=== PATIENT | male | born 1950 | race Caucasian/White ===

== ENCOUNTER 2017-12-06 13:18 | Inpatient (IN) ==
[2017-12-06 13:54] LABS: Basophils % 0.3 % (0.0-0.8); Eosinophils # 0.2 10*3/uL (0.0-0.87); Eosinophils % 1.1 % (0.00-10.9); Hematocrit 42.5 VOL% (42.0-52.0); Hemoglobin 14.9 GM/DL (14.0-18.0); Immature Granulocytes % 0.4 %; Immature Granulocytes Absolute 0.05 #; Lymphocytes % 14.5 % (21.2-54.2); Mean Corpuscular HGB Conc 35.1 GM/DL (32-36); Mean Corpuscular Hemoglobin 33 PG (27-34); Mean Corpuscular Volume 95.1 FL (87-102); Mean Platelet Volume 10.7 FL (9.6-12.0); Monocytes # 1.1 10*3/uL (0.11-0.8); Neutrophils # 10.6 10*3/uL (1.4-7.4); Neutrophils % 75.7 % (38.7-73.9); Platelet Count 182 T/CUMM (130-400); Red Blood Count 4.47 MC/CUMM (3.8-5.5)
[2017-12-06 14:13] LABS: Calcium 8.9 MG/DL (8.5-10.1); Osmolality,Calculated 280.5 MOS/KG (273-304); Potassium 3.9 MMOL/L (3.5-5.1)
[2017-12-06] MEDS ORDERED: CEFTAROLINE 600 MG in SODIUM CHLORIDE 0.9% 100 ML IV STA (15:38)
[2017-12-06] MEDS ORDERED: ACETAMINOPHEN 325 MG TABLET PO PRN (17:23)
[2017-12-06] MEDS ORDERED: ONDANSETRON 4 MG/2 ML VIAL IV PRN (17:23)
[2017-12-06] MEDS ORDERED: PITAVASTATIN 2 MG TABLET PO SCH (17:30)
[2017-12-06] MEDS: SODIUM CHLORIDE 0.9% 1,000 ML IV SCH (18:23)
[2017-12-06] MEDS: DOCUSATE SODIUM 100 MG CAPSULE PO SCH (20:49)
[2017-12-07] MEDS: SODIUM CHLORIDE 0.9% 1,000 ML IV SCH ×2 (01:56→11:02)
[2017-12-07] MEDS: CEFTAROLINE 600 MG in SODIUM CHLORIDE 0.9% 100 ML IV SCH ×2 (04:13→22:12)
[2017-12-07 05:21] LABS: Basophils # 0.1 10*3/uL (0.0-0.2); Basophils % 0.4 % (0.0-0.8); Eosinophils # 0.4 10*3/uL (0.0-0.87); Eosinophils % 3.2 % (0.00-10.9); Hematocrit 40.3 VOL% (42.0-52.0); Hemoglobin 14.1 GM/DL (14.0-18.0); Immature Granulocytes % 0.3 %; Immature Granulocytes Absolute 0.04 #; Lymphocytes % 16.5 % (21.2-54.2); Mean Corpuscular Hemoglobin 33 PG (27-34); Mean Corpuscular Volume 94.4 FL (87-102); Mean Platelet Volume 11.2 FL (9.6-12.0); Monocytes # 0.8 10*3/uL (0.11-0.8); Monocytes % 6.6 % (1.7-12.7); Platelet Count 168 T/CUMM (130-400); Red Blood Count 4.27 MC/CUMM (3.8-5.5); Red Cell Distribution Width 12.9 % (9.3-17.3); White Blood Count 12.3 T/CUMM (4-12)
[2017-12-07 07:29] LABS: Sedimentation Rate-Westergren 46 MM/HR (0-20)
[2017-12-07] MEDS ORDERED: LOSARTAN 50 MG TABLET PO SCH (09:00)
[2017-12-07] MEDS ORDERED: ASPIRIN EC 81 MG TABLET PO SCH (09:00)
[2017-12-07] MEDS ORDERED: NON-FORMULARY MEDICATION (Omeprazole [Prilosec] 20 MG) PO SCH (09:00)
[2017-12-07] MEDS: DOCUSATE SODIUM 100 MG CAPSULE PO SCH ×2 (09:03→22:05)
[2017-12-07] MEDS: PANTOPRAZOLE 40 MG TABLET PO SCH (09:04)
[2017-12-07] MEDS ORDERED: LIDOCAINE 1%/EPI INJ 20 ML VIAL ONE (19:54)
[2017-12-07] MEDS ORDERED: PROPOFOL 200 MG/20 ML VIAL IV ONE (21:07)
[2017-12-07] MEDS ORDERED: MIDAZOLAM 2 MG/2 ML VIAL ONE (21:07)
[2017-12-07] MEDS ORDERED: SEVOFLURANE 1 UNIT/15 MINUTE INH ONE (21:07)
[2017-12-07] MEDS ORDERED: fentaNYL 100 MCG/2 ML VIAL ONE (21:07)
[2017-12-07] MEDS ORDERED: ONDANSETRON 4 MG/2 ML VIAL ONE (21:08)
[2017-12-07] MEDS ORDERED: ROCURONIUM 100 MG/10 ML VIAL IV ONE (21:08)
[2017-12-07] MEDS ORDERED: SUCCINYLCHOLINE 200 MG/10 ML VIAL ONE (21:08)
[2017-12-07] MEDS ORDERED: KETOROLAC 30 MG/1 ML VIAL ONE (21:08)
[2017-12-07] MEDS: HYDROmorphone 2 MG/1 ML VIAL IV PRN ×2 (21:15→21:20)
[2017-12-07] MEDS: CHLORHEXIDINE 0.12% ORAL RINSE 60 ML BOTTLE SWISH/SPIT SCH (22:06)
[2017-12-08] MEDS: SODIUM CHLORIDE 0.9% 1,000 ML IV SCH ×4 (00:32→17:22)
[2017-12-08] MEDS: LOSARTAN 50 MG TABLET PO SCH (08:46)
[2017-12-08] MEDS: ASPIRIN CHEW 81 MG TABLET PO SCH (08:47)
[2017-12-08] MEDS: DOCUSATE SODIUM 100 MG CAPSULE PO SCH ×2 (08:48→21:00)
[2017-12-08] MEDS: PANTOPRAZOLE 40 MG TABLET PO SCH (08:48)
[2017-12-08] MEDS: CHLORHEXIDINE 0.12% ORAL RINSE 60 ML BOTTLE SWISH/SPIT SCH ×2 (08:48→21:25)
[2017-12-08] MEDS: CEFTAROLINE 600 MG in SODIUM CHLORIDE 0.9% 100 ML IV SCH ×2 (08:49→21:25)
[2017-12-08] MEDS ORDERED: PITAVASTATIN 2 MG TABLET PO SCH (09:00)
[2017-12-09] MEDS: SODIUM CHLORIDE 0.9% 1,000 ML IV SCH (03:06)
[2017-12-09] MEDS: CHLORHEXIDINE 0.12% ORAL RINSE 60 ML BOTTLE SWISH/SPIT SCH (08:31)
[2017-12-09] MEDS: ASPIRIN CHEW 81 MG TABLET PO SCH (08:31)
[2017-12-09] MEDS: CEFTAROLINE 600 MG in SODIUM CHLORIDE 0.9% 100 ML IV SCH ×2 (08:31→15:02)
[2017-12-09] MEDS: LOSARTAN 50 MG TABLET PO SCH (08:31)
[2017-12-09] MEDS: PANTOPRAZOLE 40 MG TABLET PO SCH ×2 (08:35→08:50)
[2017-12-09] MEDS: DOCUSATE SODIUM 100 MG CAPSULE PO SCH ×2 (08:35→09:45)
[2017-12-09] MEDS ORDERED: IBUPROFEN 600 MG TABLET PO PRN (08:42)
[2017-12-09 15:56] VITALS: BP 129/72
== END 2017-12-09 16:57 | disposition home or self-care (01) | DRG 580 ==
LOC: N.ED 13:18 → N.EDINP 15:45 → N.2E 16:55
PROVIDERS: ADMIT Family Medicine; ATTEND Family Medicine